=== PATIENT | female | born 1970 | race Two or more races ===

== ENCOUNTER → 2024-10-15 | Outpatient (CLI) | payer OTHER ==
[2024-10-15 10:17] LABS: Hematocrit 43.8 % (36.0-46.0); Hemoglobin 15.1 g/dL (12.2-16.2); Mean Corpuscular Hemoglobin 32.3 pg (28.0-32.0); Mean Corpuscular Volume 93.8 fL (80.0-100.0); Nucleated Red Blood Cells % 0.1 %
[2024-10-15 11:12] LABS: Alanine Aminotransferase 18 U/L (7-40); Albumin 4.8 g/dL (3.2-4.8); Alkaline Phosphatase 65 U/L (46-116); Anion Gap 7 (5-15); BUN/Creatinine Ratio 18.5 (10.0-20.0); Blood Urea Nitrogen 15 mg/dL (9-23); Carbon Dioxide 27 mmol/L (20-31); Chloride 107 mmol/L (98-107); Glucose 97 mg/dL (74-106); Potassium 4.2 mmol/L (3.5-5.1); Sodium 141 mmol/L (136-145); Total Protein 7.0 g/dL (5.7-8.2)
[2024-10-15 11:13] LABS: Bilirubin, Total 0.6 mg/dL (0.2-1.0); HDL Cholesterol 58 mg/dL (40-59)
[2024-10-15 11:14] LABS: Calcium 10.5 mg/dL (8.7-10.4); Cholesterol 203 mg/dL (< 200); Triglycerides 202 mg/dL (< 150)
== END | disposition home or self-care (01) ==
LOC: LAB 09:32
PROVIDERS: ATTEND Nurse Practitioner Family
DX: E78.5 Hyperlipidemia, unspecified (principal); E66.9 Obesity, unspecified; Z00.01 Encounter for general adult medical examination with abnormal findings
CPT/HCPCS: 36415; 80053; 80061; 82306; 84443; 85025

== ENCOUNTER → 2024-11-13 | Outpatient (CLI) | payer OTHER ==
[~2024-11-13] MED LIST: CYCL-837 PO
== END | disposition home or self-care (01) ==
LOC: LAB 10:39
PROVIDERS: ATTEND Family Medicine
DX: Z01.812 Encounter for preprocedural laboratory examination (principal); D48.5 Neoplasm of uncertain behavior of skin

== ENCOUNTER 2024-11-17 11:09 | Emergency (ER) | payer OTHER ==
[~2024-11-17] VITALS: Ht 172.7 cm; Wt 79.5 kg
[2024-11-17 11:12] VITALS: TEMP 98.7
[2024-11-17] MEDS: HYDROcodone-ACET 5/325MG TAB PO ONE (13:02)
[2024-11-17] MEDS: KETOROLAC TROMETH 60MG/2ML VIAL IM ONE (13:18)
[2024-11-17] MEDS: methylPREDNISolone SOD SUCC 125 MG/2 ML VL IM ONE (13:19)
--- NOTE | 2024-11-17 13:42 | DVH ---
Right lower extremity venous duplex Clinical History: edema Comparison: None Findings: Duplex Doppler evaluation of the deep venous system of the right lower extremity from the common femo ral vein to the popliteal vein including color Doppler and spectral/pulsed waveform analysis was perf ormed. The common femoral vein demonstrates appropriate compressibility and waveform variability. There is compressibility/patency of the great saphenous vein at the proximal thigh. The femoral vein demonstrates appropriate compressibility and waveform variability. The deep femoral vein demonstrates appropriate compressibility and waveform variability. The popliteal vein demonstrates appropriate compressibility and waveform variability. There is normal compressibility at the tibioperoneal trunk. Impression: No right femoropopliteal venous thrombosis. If clinical concern/symptoms persist or worsen, short-interval follow-up study is suggested.
[2024-11-17] MEDS ORDERED: CYCL-837 PO (14:10)
--- NOTE | 2024-11-17 14:10 | ED.PDOC ---
Musculoskeletal HPI Comments 54-year-old female presents with a chief complaint of right leg pain The pain in her leg is described as shooting from the front of her thigh to her knee with some involvement in the back of her leg. It is exacerbated with pressure on the buttocks and feels like someone was his pressing on her leg. The pain started while she was sitting in her recliner She has tried [id number] ibuprofen lidocaine gel with a minimal improvement. Denies history of chronic steroid use or history of osteoporosis Denies history of cancer Denies fevers chills night sweats nausea vomiting unintentional weight loss Denies abdominal tearing pain Denies syncope Denies urinary changes or urinary incontinence Denies numbness tingling of the groin her inner thigh Denies previous back procedures or surgeries Chief Complaint: Lower Extremity Time Seen by MD: 12:29 Reviewed Notes: Nurses Notes, Medications, Allergies Allergies: Coded Allergies: NO KNOWN ALLERGIES (Unverified , 11/17/24) Home Meds Active Scripts Cyclobenzaprine Hcl (Cyclobenzaprine Hcl) 5 Mg Tab, 1 TAB PO QHSP PRN for 10 Days, #10 TAB 0 Refills Prov:NATANAEL SPEAR NP 11/17/24 Information Source: Patient Mode of Arrival: Ambulatory All Other Systems: Reviewed and Negative (Per HPI) Physical Exam General Appearance: No Apparent Distress, Normal HEENT: Normal ENT Inspection, Pharynx Normal, TMs Normal Neck: Full Range of Motion, Non-Tender, Normal, Normal Inspection Respiratory: Chest Non-Tender, Lungs Clear, No Accessory Muscle Use, No Respiratory Distress, Normal Breath Sounds Cardiovascular: No Edema, No JVD, No Murmur, No Gallop, Normal Peripheral Pulses, Regular Rate/Rhythm Breast Exam: Deferred Gastrointestinal: No Organomegaly, Non Tender, No Pulsatile Mass, Normal Bowel Sounds, Soft Genitalia: Deferred Pelvic: Deferred Rectal: Deferred Extremities: No calf tenderness, Normal capillary refill, Normal inspection, Normal range of motion, Non-tender, No pedal edema Musculoskeletal : Apperance: Normal Neurologic: Alert, 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 Was a procedure done?: No Differential Diagnosis EXT Differential Diagnosis: Deep Vein Thrombosis, Sprain X-Ray, Labs, Meds, VS Vital Signs Date Time Temp Pulse Resp B/P (MAP) Pulse Ox O2 Delivery O2 Flow Rate FiO2 11/17/24 14:16 61 18 115/84 (94) 96 11/17/24 14:16 76 18 97 Room Air 11/17/24 11:12 98.7 74 16 148/65 98 98.7 Current Medications Medications (Trade) Dose Ordered Sig/Marcus Route Start Time Stop Time Status Last Admin Ketorolac Tromethamine (Toradol Injection) 60 mg ONCE ONCE IM 11/17/24 13:00 11/17/24 13:01 DC 11/17/24 13:18 Methylprednisolone Sodium Succinate (Solu Medrol) 125 mg ONCE ONCE IM 11/17/24 13:00 11/17/24 13:01 DC 11/17/24 13:19 Acetaminophen/ Hydrocodone Bitart (Kiel 5/325MG Tab) 1 tab ONCE ONCE PO 11/17/24 13:00 11/17/24 13:01 DC 11/17/24 13:02 X-Ray, Labs, Meds, VS Comment I considered cauda equina, spinal cord compression, vertebral malignancy/mets, a cute spinal fracture, vertebral osteomyelitis, epidural abscess, infected or obstructed kidney stone, however this is less likely as the patient does not present with lower back pain red flags symptoms such as bowel or bladder dysfunction, saddle anesthesia, paresthesia, and without any history of malignancy or recent back trauma or spinal interventions. Therefore imaging studies such as a lumbar MRI were not indicated on today's visit. ED workup: Defer imaging and lab work for outpatient follow up at this time Disposition: Discharge. Strict return precautions discussed with the patient with full understanding. Supportive care advised (rest, ice, heat, NSAIDs, stretching exercises) Massage muscles with cold pack or ice for 20 minutes 4 times per day. Usually most useful if there is swelling during the first 48 hours Heating pad on the most painful area for 20 minutes to relieve muscle spasm Sleep and the most comfortable sleeping position (usually on the side with knees bent) Light stretching, no strenuous activity, avoid frequent bending, avoid carrying heavy objects Discussed possible benefits of yoga and acupuncture Return precautions discussed including Inability to walk/bear weight Paresthesia/weakness/leg pain Fecal/urinary incontinence Any worsening symptoms Time of 1ST Reevaluation: 14:08 Reevaluation 1ST: Improved Patient Education/Counseling: Diagnosis, Treatment Family Education/Counseling: Diagnosis, Treatment Departure 1 Departure Time of Disposition: 14:08 Impression: Primary Impression: Lumbar radiculopathy Disposition: HOME / SELF CARE / HOMELESS Condition: Stable e-Prescriptions Cyclobenzaprine Hcl (Cyclobenzaprine Hcl) 5 Mg Tab 1 TAB PO QHSP PRN for 10 Days, #10 TAB 0 Refills Prov: NATANAEL SPEAR NP 11/17/24 Critical Care Note Critical Care Time?: No Stability Stability form required: No Heart Score Heart Score: Heart Score Response (Comments) Value History N/A 0 EKG N/A 0 Age N/A 0 Risk Factors N/A 0 Troponin N/A 0 Total 0 NATANAEL SPEAR NP Nov 17, 2024 14:10
[2024-11-17 14:16] VITALS: BP 115/84; PULSE 76; RESP 18; O2SAT 97
== END 2024-11-17 16:16 | disposition home or self-care (01) ==
LOC: ER 11:09
DX: M54.16 Radiculopathy, lumbar region (principal); M79.651 Pain in right thigh; M25.561 Pain in right knee
CPT/HCPCS: 93971; 96372; 99285; J1885; J2919

== ENCOUNTER 2024-12-16 09:07 | Day surgery (SDC) | payer OTHER ==
[2024-12-15 11:15] LABS: Hematocrit 41.6 % (36.0-46.0); Hemoglobin 14.3 g/dL (12.2-16.2); Mean Corpuscular Hemoglobin 32.0 pg (28.0-32.0); Mean Corpuscular Volume 92.9 fL (80.0-100.0); Nucleated Red Blood Cells % 0.1 %
[2024-12-15 11:35] LABS: Alanine Aminotransferase 11 U/L (7-40); Albumin 4.6 g/dL (3.2-4.8); Alkaline Phosphatase 64 U/L (46-116); Anion Gap 9 (5-15); BUN/Creatinine Ratio 11.9 (10.0-20.0); Bilirubin, Total 0.6 mg/dL (0.2-1.0); Blood Urea Nitrogen 10 mg/dL (9-23); Calcium 9.4 mg/dL (8.7-10.4); Carbon Dioxide 28 mmol/L (20-31); Chloride 106 mmol/L (98-107); Glucose 95 mg/dL (74-106); Potassium 3.8 mmol/L (3.5-5.1); Sodium 143 mmol/L (136-145); Total Protein 7.2 g/dL (5.7-8.2)
[2024-12-15 11:38] LABS: INR 0.98 (0.9-1.15); Partial Thromboplastin Time 24.8 SEC (24.5-34.5); Prothrombin Time 10.4 sec (9.3-11.8)
[2024-12-15 13:00] LABS: Urine Protein, UAD Negative (Negative)
[~2024-12-16] VITALS: Ht 172.7 cm; Wt 80.3 kg
[~2024-12-16 09:07] MED LIST changes: -CYCL-837 PO; +MULT-1018 OR
[2024-12-16] MEDS ORDERED: KETAMINE 50mg/ML 1ml syringe ONE (11:42)
[2024-12-16] MEDS ORDERED: MIDAZOLAM HCL 2MG/2ML 2ml VIAL (1mg/ml) ONE (11:42)
[2024-12-16] MEDS ORDERED: fentaNYL CITRATE 100 MCG/2 ML VL ONE (11:42)
[2024-12-16] MEDS ORDERED: ONDANSETRON HCL 4 MG/2 ML VIAL ONE (11:42)
[2024-12-16] MEDS ORDERED: PROPOFOL 10 MG/ML 20 ML IV ONE (11:42)
[2024-12-16] MEDS ORDERED: LIDOCAINE 1% (LOCAL ANESTH.) PF 5ml SDV ONE (11:42)
[2024-12-16] MEDS ORDERED: HYDROmorphone HCL 2 MG/ML VL/or syr ONE (11:42)
[2024-12-16] MEDS ORDERED: SODIUM CHLORIDE LOCK 10 ML ONE (11:42)
[2024-12-16] MEDS ORDERED: HYDROmorphone HCL 2 MG/ML VL/or syr IV PRN (11:45)
[2024-12-16] MEDS ORDERED: MORPHINE SULFATE 4 MG/ML SYR/VIAL IV PRN ×2 (11:45→12:00)
[2024-12-16] MEDS ORDERED: KETOROLAC TROMETH 30 MG/ML 1ML VIAL IV ONE (11:45)
[2024-12-16] MEDS ORDERED: METOCLOPRAMIDE HCL 5MG/ml INJ 2ml VIAL IV PRN (11:45)
[2024-12-16] MEDS: ceFAZolin 1GM/50ML 100 ML IV ONE (12:43)
[2024-12-16] MEDS: LIDOCAINE 1% HCL (LOCAL ANESTH.) INJ 20ML MDV IJ ONE (12:49)
[2024-12-16] MEDS: BUPIVACAINE HCL 0.25% P/F 10 ML VIAL ONE (12:50)
[2024-12-16] MEDS: LIDOCAINE W/ EPINEPHRINE 1% 20ML VIAL ONE (12:50)
[2024-12-16 13:33] VITALS: PULSE 93; RESP 100; RESP 15; TEMP 97.1; O2SAT 100
[2024-12-16 13:45] VITALS: PULSE 80; RESP 12; O2SAT 97
--- NOTE | 2024-12-16 13:56 | DVHOP ---
DATE OF SURGERY: 12/16/2024 PREOPERATIVE DIAGNOSIS: Biopsy-proven invasive melanoma, right upper arm. POSTOPERATIVE DIAGNOSIS: Biopsy-proven invasive melanoma, right upper arm. SURGEON: Minh Mcneal MD ANESTHESIA: General endotracheal, Dr. Fuentes. PROCEDURES: * Wide excision of biopsy site, right upper posterior arm. * [place] lymph node biopsy, right axilla. DESCRIPTION OF PROCEDURE: Under general anesthesia with the patient's skin prepped and draped, the patient's skin around the previous biopsy site was infiltrated with 0.25% Marcaine and 0.5% Xylocaine with epinephrine. The incision was approximately 1.5-2 cm in distance from the previous scar. The incision was through the fat and the tissue was removed and marked with a long suture at the medial aspect of the specimen and the short suture at the caudal aspect of the specimen. This was submitted for histopathologic examination. The arm wound was irrigated. Hemostasis was accomplished and closure accomplished using Monocryl sutures, Dermabond glue, and Steri-Strips. Subsequently, an incision was made into the right axilla. The dissection carried through the fat through the axillary contents under guidance with the Arbela counter probe. Large what appeared to be matted lymph nodes were then localized and excised. Hemostasis completed with metallic hemoclips and the specimen was then removed from the field and tested again by the Neoprobe, again showing a large amount of radioactivity within the specimen. The incision was then irrigated. Irrigant was aspirated. Closure accomplished utilizing 2-0 Monocryl sutures, Dermabond glue, and Steri-Strips similar to the closure of the right arm wound. The patient remained stable throughout the procedure and left the operating room following an accurate needle and sponge count. was not in the waiting room, was contacted on [phone], and was informed of the procedure and findings. MD LILLY Ch/SHERRI TID: [id number] RECEIPT: [id number]
--- NOTE | 2024-12-16 13:59 | DVH ---
NUCLEAR MEDICINE LYMPHOSCINTIGRAPHY HISTORY: MELANOMA OF RIGHT UPPER ARM TECHNIQUE/DOSE: 915 uCi Lymphoseek injection performed in the right upper arm. Findings/ IMPRESSION: Right upper arm lymphoscintigraphy performed.
[2024-12-16] MEDS: HYDROmorphone HCL 2 MG/ML VL/or syr IV PRN (14:17)
[2024-12-16 14:35] VITALS: BP 145/92; PULSE 70; RESP 14; O2SAT 99
== END 2024-12-16 14:50 | disposition home or self-care (01) ==
LOC: SUR 09:07
PROVIDERS: ATTEND Surgery
DX: C43.61 Malignant melanoma of right upper limb, including shoulder (principal); R59.0 Localized enlarged lymph nodes
CPT/HCPCS: 11606; 36415; 38525; 38900; 78195; 80053; 81001; 85025; 85610; 85730; 88304; 88307; 88313; 88342; A9541; J0690; J1171; J2250; J2405; J2704; J3010; J3490; J2003